=== PATIENT | female | born 1960 | race Caucasian/White ===

== ENCOUNTER 2018-09-23 12:38 | Emergency (ER) | payer MEDICARE, MEDICAID ==
--- OUTSIDE RECORDS SUMMARY | 2018-09-23 12:44 | XMS REPORT | Continuity of Care Document ---
:1960 External Reference #:[id number] Author Name Santosh Rueda M.D. Address [address] [place] [address] Care Team Providers Name Role Phone Maryanne Bartholomew M.D. 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 Active cataract Onset: 03/14/2015 Aphakia Santosh Rueda M.D. Active Onset: 03/14/2015 Esotropia Santosh Rueda M.D. Active Onset: 03/14/2015 Congenital nystagmus Santosh Rueda M.D. Active Onset: 03/29/2017 Monocular esotropia Santosh Rueda M.D. Active Onset: 04/14/2018 Blepharitis Santosh Rueda M.D. Active Onset: Periodontal disease Active Onset: Vitamin D deficiency Active Onset: 09/22/2018 Nuclear senile cataract Santosh Rueda M.D. Active Family History Date Family Member(s) Problem(s) Comments Father No Current Problems Mother No Current Problems Social History Type Date Description Comments Sex Unknown Marital Status Legal Status: Never Work Status Unemployed ETOH Use Never used alcohol Tobacco Use Start: Unknown Patient has never smoked Recreational Drug Use Never Used Drugs Smoking Status Reviewed: 09/22/18 Patient has never smoked Allergies, Adverse Reactions, Alerts Date Description Reaction Status Severity Comments 09/22/2018 Naproxen Sodium Active 09/22/2018 Sulindac Active 03/14/2015 NKDA Inactive Medications Medication Date Status Form Strength Qnty SIG Indications Ordering Provider Vigamox 09/22/ Active Solution 0.5% 3ml one drop Santosh Gibson 2019 right eye [place], three M.D. times a day, start the day before surgery Ketorolac 09/22/ Active Solution 0.5% 10ml use one Santosh Gibson Tromethamine 2019 drop in [place], the right M.D. eye three times a day, start the day before surgery Prednisolone 09/22/ Active Suspension 1% 10ml 1 drops Santosh Gibson Acetate 2019 right eye [place], three M.D. times a day. taper as directed Raloxifene HCL / Active Tablets 60mg Unknown 0000 Amoxicillin / Active Capsules 500mg Prior To Unknown 0000 Dental Work Vitamin D / Active Chewtabs 400Unit every day Unknown (Cholecalcifero 0000 l) Ibuprofen / Active Tablets 200mg as needed Unknown 0000 Synthroid / Active Tablets 50mcg Unknown 0000 Acetaminophen / Active Tablets 325mg Unknown 0000 Guaifenesin / Active Liquid 100mg/5ML as needed Unknown 0000 Aspirin Low 00/ Active Chewtabs 81mg Unknown Strength 0000 Baby Shampoo / Active Shampoo on lids Unknown 0000 Triple / Active Ointment 3.5-400-50 Unknown Antibiotic 0000 00 Aspirin Enteric / Active Tablets DR 81mg Unknown Coated Adult 0000 Low Strength Reclast / Active Solution 5mg/100ML for Unknown 0000 infusion as directed every yr Prevident 5000 0000/ Active Gel 1.1% Unknown Dry Mouth 0000 Listerine / Active Liquid Unknown Antiseptic 0000 Calcium / Active Tablets 600-400mg- Unknown Carb-Cholecalci 0000 Unit ferol Daily Vitamin / Active Tablets Unknown 0000 Gas Relief / Active Capsules 125mg Unknown 0000 Levothyroxine / Hx Tablets 50mcg Unknown Sodium 0000 - 2016 Chlorhexidine / Hx Solution 0.12% Unknown Gluconate Oral 0000 - Rinse 2016 Evista / Hx Tablets 60mg tab by Unknown 0000 - mouth 03/13/ every day 2015 Immunizations Description No Information Available Vital Signs Description No Information Available Results Description No Information Available Procedures Date Code Description Status 04/14/2018 29272 Est Patient Comprehensive Exam Completed 03/29/2017 47638 Determination Of Refractive State Completed 03/29/2017 60375 Est Patient Comprehensive Exam Completed 03/29/2016 85550 Determination Of Refractive State Completed 03/29/2016 68749 Est Patient Comprehensive Exam Completed 03/14/2015 26962 Determination Of Refractive State Completed 03/14/2015 95021 Est Patient Comprehensive Exam Completed 01/25/2014 94960 Est Patient Comprehensive Exam Completed 01/22/2013 87601 Est Patient Comprehensive Exam Completed 01/21/2012 42683 Est Patient Comprehensive Exam Completed 01/16/2011 67524 Est Patient Intermediate Exam Completed 07/17/2010 20924 New Patient Comprehensive Exam Completed Encounters Description No Information Available Plan of Treatment Future Appointment(s):10/13/2018 11:00 am - Marivel Rojas O.D. at Santosh Rueda MD, 09/25/2018 10:45 am - Santosh Rueda M.D. at Santosh Rueda MD , 09/24/2018 7:00 am - Santosh Rueda M.D. at Santosh Rueda MD, 2018 10:00 am - Santosh Rueda M.D. at Santosh Rueda MD, 09/22/2018 - Santosh Rueda M.D.H25.041 Posterior subcapsular polar age-related cataract, right eyeComments:Smoking can increase the risk of developing or worsening any eye related disease, as well as affect your overall health. If you are a smoker , we strongly recommend that you quit.If you are not a smoker, we strongly recommend that you do not start. Dense cataract in the right eye.Follow up:For surgery. Please keep post op appointments as scheduled.DFE/IOPH27.02 Aphakia, left eyeH55.01 Congenital opbmsifyrP69.012 Monocular esotropia, left eyeH25.12 Age-related nuclear cataract, left eye
[2018-09-23 13:13] VITALS: BP 104/57
--- NOTE | 2018-09-23 13:30 | UC ---
Knee Pain HPI - HPI Summary HPI Summary: 57 yo female c/o bruising and swelling to L knee. Event itself not witnessed, staff discovered discoloration of knee during shower 09/21/18, fall onto L knee on Saturday09/19/18. Pt reports that she tripped "two times," but further details unclear. Able to bear weight but limps. Pain is nonfocal, "it hurts". Denies pain or injury elsewhere. Specifically denies pain to R knee, pelvis / hips, neck / back / feet. 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 congenital neurocogn d/o - Surgical History Surgical History: Yes Surgery Procedure, Year, and Place: L shoulder rotator cuff; L hip repair - Family History Known Family History: Positive: Hypertension - Social History Alcohol Use: None Substance Use Type: None Smoking Status (MU): Never Smoked Tobacco - Immunization History Most Recent Influenza Vaccination: 2015 Most Recent Tetanus Shot: 2006 Most Recent Pneumonia Vaccination: 10/07/96 Review of Systems All Other Systems Reviewed And Are Negative: Yes Constitutional: Positive: Negative Skin: Positive: Bruising Eyes: Positive: Negative, Other - scheduled for cataract sx tomorrow ENT: Positive: Negative Respiratory: Positive: Negative Cardiovascular: Positive: Negative Gastrointestinal: Positive: Negative Genitourinary: Positive: Negative Motor: Positive: Other - see hpi Neurovascular: Positive: Other - see hpi Musculoskeletal: Positive: Edema - see hpi Neurological: Positive: Negative Psychological: Positive: Negative Is Patient Immunocompromised?: No Physical Exam Triage Information Reviewed: Yes Appearance: Well-Appearing - sitting up, able to - with assistance - ambulate to exam table, Well-Nourished Vital Signs: Initial Vital Signs Temp 98.7 F 09/23/18 13:04 Pulse 51 09/23/18 13:04 Resp 18 09/23/18 13:04 BP 104/57 09/23/18 13:04 Pulse Ox 98 09/23/18 13:04 Vital Signs Reviewed: Yes Eye Exam: Normal - grossly normal, there appears to be amblyopia ENT Exam: Normal - mmm. no facial eccymosis. tongue unremarkable. Neck: Positive: Nontender Respiratory Exam: Normal Respiratory: Positive: Chest non-tender, Lungs clear, Normal breath sounds, No respiratory distress, No accessory muscle use Cardiovascular Exam: Other - HR regular, correlates with L radial pulse. + systolic murmur Abdominal Exam: Normal Abdomen Description: Positive: Nontender Musculoskeletal Exam: Other - Left knee + swelling and eccymosis. + tender medial knee and ant knee. Post knee + fluid, no cord. Denies tenderness. Foot warm to touch, ankle / foot nontender. DP faint, palb. PT not palb. Distal cap refill is good. Neurological Exam: Normal - grossly nonfocal. Hx Down's S. Psychological Exam: Normal - baseline per aide present. smiles, pleasant. Skin Exam: Other - + large eccymosis purple, blue, yellow over knee L and extending downward medially BLE + venous insuff changes and evidence of chronic lymphedema. Feet warm to touch. Knee Pain Course/Dx - Course Course Of Treatment: Xray L knee ordered. Received call from thermal technician - pt has femoral hardware - as such, femur L xray ordered. Reviewed xrays and reports. + tibial plateau fx. 14:35 spoke with MANJIT Luong (for Dr. Todd, orthopedic air conditioning equipment mechanic). They will see pt immediately upon d/c here (in orthopedic office). D/w pt's aide and pt. Knee immobilizer ordered, but Ms. Guillermo resolutely refused it. It was given to her aide, in case she changes her mind. Transported via wheelchair to the car, then will use wheelchair thereafter, if indicated, per orthopedic office. 14:52 - called [facility] to advise PCP Dr. Bartholomew of condition. Message left with membership secretary. - Differential Dx/Diagnosis Provider Diagnosis: Tibial plateau fracture, left Discharge - Sign-Out/Discharge Documenting (check all that apply): Patient Departure All imaging exams completed and their final reports reviewed: Yes - Discharge Plan Condition: Stable Disposition: HOME Patient Education Materials: Leg Fracture (ED) Referrals: Maryanne Bartholomew MD [Primary Care Provider] - Additional Instructions: TIBIA PLATEAU FRACTURE (broken leg bone just under the knee). Avoid weight bearing unless ok by orthopedic surgeon. Please follow up with Dr. Bartholomew, in the next week (unless sooner recommended by orthopedic doctor). Go directly to the orthopedic office upon leaving here. Wheelchair assistance. - Billing Disposition and Condition Condition: STABLE Disposition: Home
== END 2018-09-23 15:00 | disposition home or self-care (01) ==
LOC: UCEAST 12:38
DX: S82.145A Nondisplaced bicondylar fracture of left tibia, initial encounter for closed fracture (principal); W01.0XXA Fall on same level from slipping, tripping and stumbling without subsequent striking against object, initial encounter; Y92.10 Unspecified residential institution as the place of occurrence of the external cause; M85.862 Other specified disorders of bone density and structure, left lower leg; M17.12 Unilateral primary osteoarthritis, left knee; Z88.6 Allergy status to analgesic agent; Z88.8 Allergy status to other drugs, medicaments and biological substances
CPT/HCPCS: 99212; G0463

== ENCOUNTER 2018-09-28 21:08 | Emergency (ER) | payer MEDICARE, MEDICAID ==
--- OUTSIDE RECORDS SUMMARY | 2018-09-28 21:12 | XMS REPORT | Continuity of Care Document ---
:1960 External Reference #:[id number] Author Name Yaquelin Tiwari Care Team Providers Name Role Phone Maryanne Bartholomew MD Primary Care Physician Unavailable Payers Type Date Identification Numbers Payment Provider Subscriber Policy Number: [id number] Medicare Hilary Edwards PayID: [id number] [address] [place] [address] Policy Number: [id number] Medicaid Hilary Edwards PayID: [id number] [address] [place] [address] Advance Directives Description No Information Available Problems Date Description Provider Status Onset: 09/23/2018 Contusion of knee Yannick Yeh MD Active Onset: 08/14/2016 Closed fracture of tibial plateau Patel Murdock M.D. Active Family History Description No Information Available Social History Type Date Description Comments Sex Unknown Lives With Assisted living Occupation Disabled ETOH Use Never used alcohol Tobacco Use Start: Unknown Patient has never smoked Smoking Status Reviewed: 09/23/18 Patient has never smoked Exercise Type/Frequency Does not exercise Allergies, Adverse Reactions, Alerts Description No Known Drug Allergies Medications Medication Date Status Form Strength Qnty SIG Indications Ordering Provider Prevident 5000 00/ Active Gel 1.1% use as Unknown Dry Mouth 0000 directed(pt is not using) Evista 00/ Active Tablets 60mg 1 by mouth Unknown 0000 every day Multi Complete 0000/ Active Capsules daily Unknown 0000 Synthroid 00/00/ Active Tablets 50mcg 1 by mouth Unknown 0000 every day Ibuprofen 00/00/ Active Tablets 400mg by mouth Unknown 0000 every 4 to 6 hours as needed Guaifenesin ac / Active Syrup 100-10mg/ 1 teaspoon Unknown 0000 5ML by mouth every 4-6 hours as needed cough Vitamin D-400 00// Active Tablets 400Unit 1 by mouth Unknown 0000 every day Chlorhexidine / Active Solution 0.12% rinse/spit Unknown Gluconate Oral 0000 15 Rinse milliliters twice a day Calcium 500 + D / Active Tablets 500-125mg twice a day Unknown 0000 -Unit Aspir-81 / Active Tablets DR 81mg 1 by mouth Unknown 0000 every day Tylenol Extra / Active Tablets 500mg 2 by mouth Unknown Strength 0000 as needed Cough & Cold / Active Tablets 4-30mg Unknown 0000 Advil 03/21/ Hx Capsules 400mg 100ca 1 tid prn Mg 2010 - ps pain Andrez, 07/10/ M.DCarlos 2015 Amoxicillin 01/25/ Hx Tablets 500mg 4tabs take 4 tabs k 2010 - 1 hr prior Andrez, 07/10/ to dental M.DCarlos 2016 work Oxycodone HCL / Hx Tablets 5mg 1-2 tabs by Unknown 0000 - mouth every 05/05/ 4-6 hours as 2017 needed Immunizations Description No Information Available Vital Signs Date Vital Result Comment 09/23/2018 3:43pm Height 62 inches 5'2" Weight 127.00 lb Heart Rate 72 /min Respiratory Rate 16 /min Body Temperature 96.7 F BMI (Body Mass Index) 23.2 kg/m2 05/06/2017 11:03am Height 62 inches 5'2" Weight 145.00 lb BP Systolic 120 mmHg BP Diastolic 70 mmHg Respiratory Rate 18 /min Body Temperature 97.9 F Pain Level 3 BMI (Body Mass Index) 26.5 kg/m2 01/31/2017 9:49am Height 62 inches 5'2" Weight 145.00 lb Heart Rate 58 /min BP Systolic 122 mmHg BP Diastolic 74 mmHg Respiratory Rate 13 /min Body Temperature 96.2 F Pain Level 2 BMI (Body Mass Index) 26.5 kg/m2 12/13/2016 12:05pm Height 62 inches 5'2" Weight 145.00 lb Heart Rate 64 /min BP Systolic 123 mmHg BP Diastolic 74 mmHg Body Temperature 96.8 F BMI (Body Mass Index) 26.5 kg/m2 11/06/2016 10:50am Height 62 inches 5'2" Weight 145.00 lb Heart Rate 72 /min BP Systolic Recheck 122 mmHg BP Diastolic Recheck 76 mmHg Respiratory Rate 16 /min Body Temperature 98.1 F BMI (Body Mass Index) 26.5 kg/m2 10/09/2016 11:26am Height 62 inches 5'2" Weight 147.00 lb Heart Rate 72 /min BP Systolic Recheck 126 mmHg BP Diastolic Recheck 80 mmHg Respiratory Rate 16 /min Body Temperature 97.3 F BMI (Body Mass Index) 26.9 kg/m2 09/11/2016 1:11pm Height 62 inches 5'2" Weight 147.00 lb Heart Rate 76 /min BP Systolic Recheck 124 mmHg BP Diastolic Recheck 82 mmHg Respiratory Rate 16 /min Body Temperature 98.2 F BMI (Body Mass Index) 26.9 kg/m2 08/14/2016 1:27pm Height 52 inches 4'4" Weight 150.00 lb Heart Rate 76 /min BP Systolic Recheck 126 mmHg BP Diastolic Recheck 78 mmHg Respiratory Rate 16 /min Body Temperature 980.0 F BMI (Body Mass Index) 39.0 kg/m2 Results Description No Information Available Procedures Date Code Description Status 07/07/2016 83704 FX Tibial Closed Trtment Proxi Completed 03/21/2011 17823 Rad Exam; Hip Unilat Completed 03/21/2011 04174 Rad Exam; Pelvis Completed 01/15/2011 43272 Rad Exam; Hip Unilat Completed 01/15/2011 63712 Rad Exam; Pelvis Completed 12/04/2010 84061 Open TX Of Femoral FX,Promimal End,Neck Internal Fixation Completed 12/04/2010 86105 Open TX Of Femoral FX,Promimal End,Neck Internal Fixation Completed Encounters Type Date Location Provider Dx Diagnosis Office Visit 05/06/2017 [facility] Richard Barahona S82.142D Displ bicondylar 10:45a [facility] Max MD fx l tibia, subs for clos fx w [facility] Office Visit 01/31/2017 Orthopedic Richard Barahona S82.142D Displ bicondylar 9:15a [facility] Max MD fx l tibia, subs for clos fx w [facility] Office Visit 12/13/2016 Orthopedic Richard Barahona S82.142D Displ bicondylar 11:15a [facility] Max MD fx l tibia, subs for clos fx w [facility] Office Visit 11/06/2016 Orthopedic Patel Murdock, S82.142D Displ bicondylar 10:30a [facility] Krysten SOLARES M.D. fx l tibia, subs [place] for clos fx w routn heal M19.021 Primary osteoarthritis, right elbow Office Visit 10/09/2016 11:15a Orthopedic Patel S82.142D Displ bicondylar [facility] Krysten Murdock M.D. 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 bicondylar Hospitalists fracture of left tibia, init E78.00 Pure hypercholesterolemia, unspecified E03.9 Hypothyroidism, unspecified Q90.9 Down syndrome, unspecified Office Visit 07/09/2016 [facility] S82.142A Displaced 1:20p Assoc,henrique Marsh D.O. bicondylar Hospitalists fracture of left tibia, init E78.00 Pure hypercholesterolemia, unspecified E03.9 Hypothyroidism, unspecified Q90.9 Down syndrome, unspecified Office Visit 07/08/2016 [facility] S82.142A Displaced 1:20p Assoc,henrique Marsh D.O. bicondylar Hospitalists fracture of left tibia, init E78.00 Pure hypercholesterolemia, unspecified E03.9 Hypothyroidism, unspecified Q90.9 Down syndrome, unspecified Office Visit 07/07/2016 [facility] Jose Angel Tran S82.142A Displaced 1:19p Assoc,henrique MAYES M.D. bicondylar Hospitalists fracture of left tibia, init Q90.9 Down syndrome, unspecified E78.00 Pure hypercholesterolemia, unspecified E03.9 Hypothyroidism, unspecified Office Visit 05/23/2011 10:30a Orthopedic China Medel, 820.8 FX Unspec [facility] RPA-C Part Of Neck Of Femur Closed Office Visit 03/21/2011 1:45p Orthopedic Mg Maguire M.D. 820.8 FX Unspec [facility] Part Of Neck Of Femur Closed Plan of Treatment Future Appointment(s):10/07/2018 9:45 am - Richard Max MD at [facility]/23/2018 - Yannick Yeh, MDS80.02xA Contusion of left knee, initial encounterFollow up:Follow Up: as scheduled with elmira in 2 weeks
--- OUTSIDE RECORDS SUMMARY | 2018-09-28 21:12 | XMS REPORT | Continuity of Care Document ---
:1960 External Reference #:[id number] Author Name Santosh Rueda M.D. Address [address] [place] [address] Care Team Providers Name Role Phone Maryanne Bartholomew M.D. Primary Care Physician Unavailable Payers Type Date Identification Numbers Payment Provider Subscriber Policy Number: [id number] Medicare - [facility] Hilary Guillermo PayID: [id number] [address] [place] [address] Policy Number: [id number] Medicaid Hilary Guillermo PayID: [id number] [address] [place] [address] Advance Directives Description No Information Available Problems [...] Use Never Used Drugs Smoking Status Reviewed: 09/23/18 Patient has never smoked Allergies, Adverse Reactions, [...] Information Available Procedures Date Code Description Status 09/22/2018 05378 Ophthalmic Biometry Completed 09/22/2018 62587 Est Patient Intermediate Exam Completed 04/14/2018 66346 Est Patient Comprehensive Exam Completed 03/29/2017 91101 Determination Of Refractive State Completed 03/29/2017 58632 Est Patient Comprehensive Exam Completed 03/29/2016 87092 Determination Of Refractive State Completed 03/29/2016 47410 Est Patient Comprehensive Exam Completed 03/14/2015 07394 Determination Of Refractive State Completed 03/14/2015 84390 Est Patient Comprehensive Exam Completed 01/25/2014 80673 Est Patient Comprehensive Exam Completed 01/22/2013 57957 Est Patient Comprehensive Exam Completed 01/21/2012 24988 Est Patient Comprehensive Exam Completed 01/16/2011 07965 Est Patient Intermediate Exam Completed 07/17/2010 34037 New Patient Comprehensive Exam Completed Encounters Description No Information Available Plan of Treatment Future Appointment(s):10/13/2018 11:00 am - Marivel Rojas O.D. at Santosh Rueda MD, pc09/25/2018 10:45 am - Santosh Rueda M.D. at Sanotsh Rueda MD , pc09/24/2018 7:00 am - Santosh Rueda M.D. at Santosh Rueda MD, 2018 10:00 am - Santosh Rueda M.D. at Santosh Rueda MD, 09/23/2018 - Santosh Rueda M.D.H25.041 Posterior subcapsular polar [...] appointments as scheduled.DFE/IOPH27.02 Aphakia, left eyeH55.01 Congenital wvnbimgfrV79.012 Monocular esotropia, left eye
--- OUTSIDE RECORDS SUMMARY | 2018-09-28 21:12 | XMS REPORT | Continuity of Care Document ---
:1960 External Reference #:[id number] Author Name Deann Tello Care Team Providers Name Role Phone Maryanne Bartholomew M.D. Primary Care Physician Unavailable Payers Type Date Identification Numbers Payment Provider Subscriber Policy Number: [id number] Medicare - [facility] Hilary Guillermo PayID: [id number] [facility] [place] [address] Policy Number: [id number] Medicaid Hilary Guillermo PayID: [id number] [address] [place] [address] Advance Directives Description No Information Available Problems [...] 100mg/5ML as needed Unknown 0000 Aspirin Low / Active Chewtabs 81mg Unknown Strength 0000 Baby Shampoo / Active Shampoo on lids Unknown 0000 Triple / Active Ointment 3.5-400-50 Unknown Antibiotic 0000 00 Aspirin Enteric / Active Tablets DR 81mg Unknown Coated Adult 0000 Low Strength Reclast / Active Solution 5mg/100ML for Unknown 0000 infusion as directed every yr Prevident 5000 / Active Gel 1.1% Unknown Dry Mouth 0000 [...] Available Procedures Date Code Description Status 09/22/2018 41289 Ophthalmic Biometry Completed 09/22/2018 25236 Est Patient Intermediate Exam Completed 04/14/2018 61193 Est Patient Comprehensive Exam Completed 03/29/2017 24641 Determination Of Refractive State Completed 03/29/2017 62802 Est Patient Comprehensive Exam Completed 03/29/2016 89453 Determination Of Refractive State Completed 03/29/2016 80157 Est Patient Comprehensive Exam Completed 03/14/2015 73360 Determination Of Refractive State Completed 03/14/2015 27079 Est Patient Comprehensive Exam Completed 01/25/2014 24435 Est Patient Comprehensive Exam Completed 01/22/2013 59846 Est Patient Comprehensive Exam Completed 01/21/2012 65289 Est Patient Comprehensive Exam Completed 01/16/2011 74492 Est Patient Intermediate Exam Completed 07/17/2010 42944 New Patient Comprehensive Exam Completed Encounters Description [...] appointments as scheduled.DFE/IOPH27.02 Aphakia, left eyeH55.01 Congenital bsmpfgxarO40.012 Monocular esotropia, left eye
--- NOTE | 2018-09-28 21:13 | UC ---
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 She was recently seen here on 09/23/18 for the same knee after she fell on . X-rays showed tibial plateau fracture which appeared to be chronic. She was offered a knee mobilizer which she declined but was given to the aide. Orthopedics office was also contacted at that time and plan was to see her immediately in orthopedics office. She had not seen orthopedics and injured her left knee again today. It's swollen and bruised. She is able to bear weight but is limping because of the pain. She is due to get her cataract surgery this week which will improve her vision and reduce her falls. - History of Current Complaint Stated Complaint: L KNEE INJURY Time Seen by Provider: 09/28/18 21:11 Hx Obtained From: Patient, Family/Gameplay Programmer - aide. Hx Last Menstrual Period: menapause - Allergies/Home Medications Allergies/Adverse Reactions: Allergies Allergy/AdvReac Type Severity Reaction Status Date / Time naproxen Allergy Unknown Verified 09/28/18 21:22 Reaction Details sulindac Allergy Unknown Verified 09/28/18 21:22 Reaction Details PMH/Surg Hx/FS Hx/Imm Hx - Additional Past Medical History Additional PMH: Chronic tibial plateau fracture Hypertension Hyperlipidemia Hypothyroidism Down syndrome Osteoporosis Cataract Previously Healthy: Yes - Surgical History Surgical History: Yes Surgery Procedure, Year, and Place: L shoulder rotator cuff; L hip repair - Family History Known Family History: Positive: Hypertension - Social History Alcohol Use: None Substance Use Type: None Smoking Status (MU): Never Smoked Tobacco - Immunization History Most Recent Influenza Vaccination: 2015 Most Recent Tetanus Shot: 2006 Most Recent Pneumonia Vaccination: 10/07/96 Review of Systems All Other Systems Reviewed And Are Negative: Yes Constitutional: Positive: Negative Skin: Positive: Negative Eyes: Positive: Negative ENT: Positive: Negative Respiratory: Positive: Negative Cardiovascular: Positive: Negative Gastrointestinal: Positive: Negative Genitourinary: Positive: Negative Motor: Positive: Negative Musculoskeletal: Positive: Arthralgia - Left knee pain, Decreased ROM - Left knee, Edema - Left knee, Other: - Limping Neurological: Positive: Negative Psychological: Positive: Negative Is Patient Immunocompromised?: No Physical Exam - Summary Physical Exam Summary: Physical Exam: Const: Appears well. No signs of apparent distress present. Alert and oriented x 3. Musculo: Walks with an antalgic gait, able to bear weight but painful. Using cane to ambulate Head/Face: Atraumatic, normocephalic on inspection. Eyes: EOMI and PERRLA in both eyes. Conjunctivae clear. ENT: Hearing normal, Respiratory: Respirations are unlabored. Lungs clear to auscultation bilaterally CVS: Regular rate and Rhythm, S1S2 normal , no murmurs identified. Extremities: Peripheral circulation is grossly normal. Pulses 2+ Abdomen : Soft non tender Skin: No lesions or rash located on the upper extremities or on the lower extremities. Neuro: Cranial nerves II to XII intact, motor and sensory intact. DTR Intact bilaterally. Mood is normal. Affect is normal. Left Knee: Insp/Palp: Significant swelling and bruising noted . Generalized tenderness to palpation Strength: Quadriceps 5/5 , No hamstring tightness. ROM: Limited and painful range of motion, flexion to 100, 10 short of full extension Special Tests: Limited testing due to pain and range of motion Triage Information Reviewed: Yes Vital Signs Reviewed: Yes Diagnostics - Radiology No standard instances Radiology Interpretation Completed By: ED Physician - Left knee x-ray: No new acute injury when compared to left knee x-ray from 09/23/18. Chronic appearing tibial plateau fracture is again noted, osteoarthritis. Status post ORIF of distal femur fracture unchanged from before. No acute osseous injury Knee Pain Course/Dx - Course Course Of Treatment: During the visit today, we obtained left knee x-rays, final read by radiologist pending until tomorrow morning. My wet read:Left knee x-ray: No new acute injury when compared to left knee x-ray from 09/23/18. Chronic appearing tibial plateau fracture is again noted, osteoarthritis. Status post ORIF of distal femur fracture unchanged from before. No acute osseous injury. I discussed these findings with her and her caregiver. It appears that there is no new acute injury. Advised her to follow-up with orthopedics and start using her immobilizer for comfort that was given to her on the last visit here. She is able to walk comfortably with the use of cane. Patient expressed understanding . - Differential Dx/Diagnosis Provider Diagnosis: Left knee pain, Contusion of left knee Discharge - Sign-Out/Discharge Documenting (check all that apply): Patient Departure All imaging exams completed and their final reports reviewed: No - Discharge Plan Condition: Stable Disposition: HOME Patient Education Materials: Contusion in Adults (ED), Knee Pain (ED) Referrals: Maryanne Bartholomew MD [Primary Care Provider] - 1 Week Yannick Yeh MD [Medical Doctor] - 2 Days Additional Instructions: Please start using the knee brace/immobilizer that was given on the last visit. Please follow up with orthopedics within 1-2 days for evaluation. Ibuprofen as needed for pain control. Ice 15 minutes at a time 3-4 times a day. Return to Urgent care / ER if symptoms get worse. - Billing Disposition and Condition Condition: STABLE Disposition: Home
[2018-09-28 21:21] VITALS: BP 113/74
--- NOTE | 2018-09-29 16:02 | UC ---
- Progress Note Progress Note: Patient Name: YARELI CASTLE Medical Record#: [id number] Ordering Physician: Tara Pereira MD Acct.#: [id number] : 1960 Age: 57 Sex: F Location: [facility] Exam Date: 09/28/182127 ADM Status: DEP ER Order Information: KNEE LEFT 4+ VWS Accession Number: [id number] CPT: 85944 HISTORY: patient fell on her left knee COMPARISONS: September 23, 2018 VIEWS: 4 , Frontal, lateral, axial, and oblique views of the left knee FINDINGS: BONE DENSITY: There is diffuse osteopenia. BONES: The patient is status post internal fixation of the distal femur. There is chronic post right changes to the distal femur and proximal tibia. Again noted is a nondisplaced fracture of the lateral plateau. This is stable. JOINTS: There is advanced osteoarthritis of the left knee. ALIGNMENT: There is no dislocation. SOFT TISSUES: Unremarkable. OTHER FINDINGS: None. IMPRESSION: 1. STABLE LATERAL TIBIAL PLATEAU FRACTURE. 2. OSTEOPENIA. 3. OSTEOARTHRITIS. 4. STATUS POST INTERNAL FIXATION OF THE DISTAL FEMUR. R0 Preliminary Imaging Read R0 <Electronically signed by Jeff Sharpe MD in OV> 09/29/18744 Dictated By: Jeff Sharpe MD Dictated Date/Time: 09/29/1845 Transcribed Date/Time: 09/29/1843 Copy to: CC:Tara Pereira MD; Maryanne Bartholomew MD Imaging - [facility] Imaging - [facility] Imaging - [facility] This report is only to be considered final once signed by the Provider(s) as displayed in the "<Electronically Signed by >" field (s). Absence of a signature indicates the report is in a draft status and still needs to be finalized. In the event this document was created by someone other than the signing Provider, the individual initiating the document will be listed in the "Entered by:" or "Dictated by:" lazaro. 1 of 2 Course/Dx - Diagnoses Provider Diagnoses: Left knee pain, Contusion of left knee Discharge - Sign-Out/Discharge Documenting (check all that apply): Post-Discharge Follow Up All imaging exams completed and their final reports reviewed: Yes - Discharge Plan Condition: Stable Disposition: HOME Patient Education Materials: Contusion in Adults (ED), Knee Pain (ED) Referrals: Yannick Yeh MD [Medical Doctor] - 2 Days Maryanne Bartholomew MD [Primary Care Provider] - 1 Week Additional Instructions: Please start using the knee brace/immobilizer that was given on the last visit. Please follow up with orthopedics within 1-2 days for evaluation. Ibuprofen as needed for pain control. Ice 15 minutes at a time 3-4 times a day. Return to Urgent care / ER if symptoms get worse. - Billing Disposition and Condition Condition: STABLE Disposition: Home
== END 2018-09-28 22:10 | disposition home or self-care (01) ==
LOC: UCEAST 21:08
DX: S80.02XA Contusion of left knee, initial encounter (principal); S82.145A Nondisplaced bicondylar fracture of left tibia, initial encounter for closed fracture; W19.XXXA Unspecified fall, initial encounter; Y92.199 Unspecified place in other specified residential institution as the place of occurrence of the external cause; Z88.8 Allergy status to other drugs, medicaments and biological substances
CPT/HCPCS: 99212; G0463

== ENCOUNTER 2018-10-01 09:02 | Day surgery (SDC) | payer MEDICARE, MEDICAID ==
[~2018-10-01 09:02] MED LIST: Acetaminophen TAB* 325 MG PO PRN; Buffered Lidocaine 1% SYRIN* 1 ML/SYRINGE INTRADERM ONE
[2018-10-01] MEDS ORDERED: Midazolam* 1 MG/ML 2 ML VIAL (2 MG) ONE ×2 (11:08→11:51)
[2018-10-01] MEDS ORDERED: Trypan Blue 0.06% SOL* 0.5 ML BTL ONE (11:28)
[2018-10-01] MEDS ORDERED: fentaNYL* 50 MCG/ML 2 ML VIAL (100 MCG VIAL) ONE (11:33)
[2018-10-01] MEDS ORDERED: Propofol* 10 MG/ML 20 ML BTL ONE (11:50)
[2018-10-01 12:26] VITALS: BP 115/59
--- NOTE | 2018-10-01 12:53 | OP ---
DATE OF OPERATION: 10/01/18 - SDS DATE OF : 56 SURGEON: Santosh Rueda M.D. PREOPERATIVE DIAGNOSIS: Cataract, right eye. POSTOPERATIVE DIAGNOSIS: Cataract, right eye. OPERATIVE PROCEDURE: Extracapsular cataract extraction with intraocular lens implant, right eye. DESCRIPTION OF PROCEDURE: The patient was brought to the operating room after being given 1/2% Alcaine with epinephrine drops in the preoperative area. The eye was prepped and draped in the usual sterile fashion. Sterile drape and eyelid speculum were placed. Again, topical 1/2% Alcaine with epinephrine was given. A paracentesis incision was made at the 9 o'clock position with the No.75 blade. Clear cornea incision 2.2 x 2.2-mm was created at the 12 o'clock position starting at the anterior limbus using the 2.2-mm keratome. The anterior chamber was irrigated with 0.4 mL of 1% non-preservative intracameral lidocaine and filled with DisCoVisc. A capsulorrhexis was completed using the cystotome and the Utrata forceps. Hydrodissection was performed with balanced salt solution. The lens nucleus was removed with the Phacoemulsification handpiece without incident. Cortex was removed with the irrigation-aspiration handpiece. The capsular bag was re-inflated using DisCoVisc and an SN60WF 13.5 implant was inserted with the shooter. Because the patient has Down syndrome, I was afraid she may rub her eye, I placed one 10-0 nylon X suture through the incision. There is also a decent amount of calcium at her whole limbus, so I thought this would be helpful. The irrigation-aspiration handpiece was used to remove all residual DisCoVisc. The eye was refilled with balanced salt solution and the wound checked and found to be watertight. Topical Maxitrol drops were given. [id number]/[facility] #: [id number] [facility]
== END 2018-10-01 12:23 | disposition home or self-care (01) ==
LOC: OREAST 09:02
PROVIDERS: ATTEND Specialist
DX: H25.041 Posterior subcapsular polar age-related cataract, right eye (principal); H27.02 Aphakia, left eye; H55.01 Congenital nystagmus; H50.012 Monocular esotropia, left eye; Q90.9 Down syndrome, unspecified; F70 Mild intellectual disabilities; E78.5 Hyperlipidemia, unspecified; E55.9 Vitamin D deficiency, unspecified; E03.9 Hypothyroidism, unspecified
CPT/HCPCS: J2250; J2704; J3010; V2632

== ENCOUNTER 2018-10-07 09:36 | Emergency (ER) | payer MEDICARE, MEDICAID ==
[2018-10-07 09:57] VITALS: BP 81/41
== END 2018-10-07 11:55 | disposition left against medical advice (07) ==
LOC: UCEAST 09:36
DX: Z53.21 Procedure and treatment not carried out due to patient leaving prior to being seen by health care provider (principal)

== ENCOUNTER 2021-07-19 21:33 | Inpatient (IN) ==
[2021-07-20] MEDS ORDERED: Droperidol 5 MG/2 ML 2 ML VIAL IM ONE (00:40)
[2021-07-20 02:06] LABS: ABS Basophils 0.1 10^3/ul (0-0.2); ABS Eosinophils 0.3 10^3/ul (0-0.6); ABS Lymphocytes 0.5 10^3/ul (1.0-4.8); ABS Monocytes 0.3 10^3/ul (0-0.8); ABS Neutrophils 4.9 10^3/ul (1.5-7.7); Eosinophil % 4.4 %; Hematocrit 38 % (35-47); Lymphocyte % 9.1 %; Mean Corpuscular HGB Conc 34 g/dL (31-36); Mean Corpuscular Hemoglobin 33 pg (27-31); Mean Corpuscular Volume 98 fL (80-97); Mean Platelet Volume 9.3 fL (7.4-10.4); Nucleated Red Blood Cells % 0.2; Platelet Count 187 10^3/uL (150-450); Red Blood Count 3.92 10^6 /uL (3.70-4.87); Red Cell Distribution Width 14 % (10-15)
[2021-07-20 02:20] LABS: Rapid COVID-19 Molecular Undetected (Undetected)
[2021-07-20 02:28] LABS: Albumin 3.6 g/dL (3.2-5.2); Albumin/Globulin Ratio 0.8 (1-3); C Reactive Protein 11.3 mg/L (<8.01); Calcium 9.1 mg/dL (8.6-10.3); Globulin 4.3 g/dL (2-4); Potassium 4.2 mmol/L (3.5-5.0); Total Bilirubin 0.4 mg/dL (0.2-1.0); Total Protein 7.9 g/dL (6.4-8.9)
[2021-07-20] MEDS ORDERED: Iohexol 300 (CONTRAST) 10 ML SDV IV ONE (02:40)
[2021-07-20] MEDS ORDERED: Ondansetron 4 mg VIAL 2 MG/ML 2 ml VIAL IV PRN (05:55)
[2021-07-20 05:56] LABS: Urine Appearance Clear; Urine Bilirubin Negative (Negative); Urine Blood Negative (Negative); Urine Color Yellow; Urine Glucose Negative (Negative); Urine Ketones Negative (Negative); Urine Nitrite Negative (Negative); Urine Protein Negative (Negative); Urine Urobilinogen Negative (Negative)
[2021-07-20] MEDS ORDERED: Polyethylene Glycol 3350 17 GM PACKET PO PRN (06:01)
[2021-07-20] MEDS: Enoxaparin 40 MG/0.4 ML SYR SUBCUT SCH (07:26)
[2021-07-20 08:19] LABS: HDL Cholesterol 50.2 mg/dL
[2021-07-20] MEDS: Magnesium Hydroxide LIQ 30 ML UDC PO SCH ×3 (11:12→21:33)
[2021-07-20] MEDS: Senna TAB 8.6 mg TAB PO SCH ×3 (11:12→21:29)
[2021-07-20] MEDS: CMCS:Raloxifene 60 mg TAB (NF) PO SCH (11:12)
[2021-07-20] MEDS: NS 0.9% 1000 ml BAG 1,000 ML IV SCH ×2 (11:16→23:00)
[2021-07-20] MEDS: PEG 3000 GI LAVAGE 1 GALLON PO SCH (17:21)
[2021-07-20] MEDS ORDERED: Senna TAB 8.6 mg TAB PO SCH (21:00)
[2021-07-21 04:42] LABS: Hematocrit 32 % (35-47); Hemoglobin 10.8 g/dL (12.0-16.0); Mean Corpuscular HGB Conc 34 g/dL (31-36); Mean Corpuscular Hemoglobin 34 pg (27-31); Mean Corpuscular Volume 99 fL (80-97); Mean Platelet Volume 8.6 fL (7.4-10.4); Platelet Count 172 10^3/uL (150-450); Red Blood Count 3.23 10^6 /uL (3.70-4.87); Red Cell Distribution Width 15 % (10-15); White Blood Count 3.2 10^3/uL (3.5-10.8)
[2021-07-21 04:59] LABS: Calcium 8.1 mg/dL (8.6-10.3); Magnesium 2.1 mg/dL (1.9-2.7); Phosphorus 3.4 mg/dL (2.5-5.0); Potassium 3.7 mmol/L (3.5-5.0)
[2021-07-21] MEDS: Enoxaparin 40 MG/0.4 ML SYR SUBCUT SCH (05:36)
[2021-07-21] MEDS ORDERED: CALCIUM GLUCONATE 1GM/50ML NS 1 GM/50 ML BAG IV ONE (06:39)
[2021-07-21 07:24] LABS: TSH Ultra Thyroid Stim Horm 6.83 mcIU/mL (0.34-5.60)
[2021-07-21 07:27] LABS: Free T4 0.94 ng/dL (0.61-1.12)
[2021-07-21] MEDS: Magnesium Hydroxide LIQ 30 ML UDC PO SCH ×2 (09:30→23:32)
[2021-07-21] MEDS: CMCS:Raloxifene 60 mg TAB (NF) PO SCH (09:30)
[2021-07-21] MEDS: PEG 3000 GI LAVAGE 1 GALLON PO SCH (13:24)
[2021-07-21] MEDS: Senna TAB 8.6 mg TAB PO SCH (23:32)
[2021-07-22 05:04] LABS: Hematocrit 35 % (35-47); Mean Corpuscular HGB Conc 34 g/dL (31-36); Mean Corpuscular Hemoglobin 34 pg (27-31); Mean Corpuscular Volume 99 fL (80-97); Mean Platelet Volume 8.5 fL (7.4-10.4); Platelet Count 192 10^3/uL (150-450); Red Blood Count 3.54 10^6 /uL (3.70-4.87); Red Cell Distribution Width 15 % (10-15); White Blood Count 4.3 10^3/uL (3.5-10.8)
[2021-07-22 05:20] LABS: Blood Urea Nitrogen 11 mg/dL (6-24); CO2 Carbon Dioxide 29 mmol/L (22-32); Calcium 8.3 mg/dL (8.6-10.3); Chloride 106 mmol/L (101-111); Glucose 92 mg/dL (70-100); Magnesium 2.2 mg/dL (1.9-2.7); Sodium 139 mmol/L (135-145)
[2021-07-22 05:30] LABS: Anion Gap 4 mmol/L (2-11)
[2021-07-22] MEDS: Enoxaparin 40 MG/0.4 ML SYR SUBCUT SCH (06:15)
[2021-07-22 09:56] LABS: Phosphorus 3.9 mg/dL (2.5-5.0); Potassium Redraw 4.1 mmol/L (3.5-5.0)
[2021-07-22] MEDS: Senna TAB 8.6 mg TAB PO SCH ×2 (09:57→20:02)
[2021-07-22] MEDS: Polyethylene Glycol 3350 17 GM PACKET PO SCH ×3 (10:07→20:02)
[2021-07-22] MEDS: Magnesium Hydroxide LIQ 30 ML UDC PO SCH ×2 (10:08→20:02)
[2021-07-22] MEDS: CMCS:Raloxifene 60 mg TAB (NF) PO SCH (11:27)
[2021-07-23] MEDS: Enoxaparin 40 MG/0.4 ML SYR SUBCUT SCH (05:31)
[2021-07-23] MEDS: CMCS:Raloxifene 60 mg TAB (NF) PO SCH (09:11)
[2021-07-23] MEDS: Polyethylene Glycol 3350 17 GM PACKET PO SCH ×2 (09:14→21:19)
[2021-07-23] MEDS: Magnesium Hydroxide LIQ 30 ML UDC PO SCH ×2 (11:34→21:18)
[2021-07-23] MEDS ORDERED: Calcium (OSCAL) 500 mg TAB PO ONE (17:26)
[2021-07-23 18:02] LABS: Phosphorus 4.1 mg/dL (2.5-5.0)
[2021-07-23 18:31] LABS: Vitamin D Total 25(OH) 36.8 ng/mL (20-50)
[2021-07-23 18:58] LABS: Calcium (PTH Intact) 8.2 mg/dL (8.6-10.3)
[2021-07-23] MEDS: Senna TAB 8.6 mg TAB PO SCH (21:19)
[2021-07-24 05:15] LABS: Calcium 8.7 mg/dL (8.6-10.3)
[2021-07-24] MEDS: Enoxaparin 40 MG/0.4 ML SYR SUBCUT SCH (05:29)
[2021-07-24] MEDS ORDERED: Calcium Gluconate 2 GM in NS 0.9% 100 ml BAG 100 ML IV ONE (10:00)
[2021-07-24] MEDS: Polyethylene Glycol 3350 17 GM PACKET PO SCH ×2 (10:12→21:30)
[2021-07-24] MEDS: CMCS:Raloxifene 60 mg TAB (NF) PO SCH (10:15)
[2021-07-24] MEDS ORDERED: Benzocaine (DENTAL) 10% TOP.GEL TOPICAL PRN (12:28)
[2021-07-24] MEDS: Dextran 70/Hypromellose Tears Eye Drops 15 ml BTL (for Artificials Tears) BOTH EYES PRN ×2 (13:34→21:31)
[2021-07-24] MEDS: Magnesium Hydroxide LIQ 30 ML UDC PO SCH ×2 (13:44→21:30)
[2021-07-24] MEDS: Senna TAB 8.6 mg TAB PO SCH (21:30)
[2021-07-25] MEDS: Enoxaparin 40 MG/0.4 ML SYR SUBCUT SCH (05:48)
[2021-07-25 08:37] LABS: ABS Basophils 0.1 10^3/ul (0-0.2); ABS Eosinophils 0.1 10^3/ul (0-0.6); ABS Lymphocytes 0.7 10^3/ul (1.0-4.8); ABS Monocytes 0.5 10^3/ul (0-0.8); ABS Neutrophils 3.3 10^3/ul (1.5-7.7); Eosinophil % 2.6 %; Hematocrit 36 % (35-47); Hemoglobin 12.4 g/dL (12.0-16.0); Lymphocyte % 15.1 %; Mean Corpuscular HGB Conc 34 g/dL (31-36); Mean Corpuscular Hemoglobin 34 pg (27-31); Mean Corpuscular Volume 98 fL (80-97); Mean Platelet Volume 8.7 fL (7.4-10.4); Platelet Count 224 10^3/uL (150-450); Red Blood Count 3.67 10^6 /uL (3.70-4.87); Red Cell Distribution Width 14 % (10-15); White Blood Count 4.7 10^3/uL (3.5-10.8)
[2021-07-25 09:19] LABS: Potassium 4.3 mmol/L (3.5-5.0)
[2021-07-25 09:20] LABS: Calcium 8.5 mg/dL (8.6-10.3)
[2021-07-25] MEDS: CMCS:Raloxifene 60 mg TAB (NF) PO SCH (09:51)
[2021-07-25] MEDS: Polyethylene Glycol 3350 17 GM PACKET PO SCH ×2 (10:37→20:18)
[2021-07-25] MEDS: Magnesium Hydroxide LIQ 30 ML UDC PO SCH ×2 (10:38→22:03)
[2021-07-25] MEDS: Erythromycin OPTH OINT APPLIC OINT BOTH EYES SCH ×3 (15:05→22:04)
[2021-07-25] MEDS: Senna TAB 8.6 mg TAB PO SCH (22:03)
[2021-07-26] MEDS: Erythromycin OPTH OINT APPLIC OINT BOTH EYES SCH ×5 (05:47→21:37)
[2021-07-26] MEDS: Enoxaparin 40 MG/0.4 ML SYR SUBCUT SCH (05:48)
[2021-07-26] MEDS: CMCS:Raloxifene 60 mg TAB (NF) PO SCH (09:45)
[2021-07-26] MEDS: Polyethylene Glycol 3350 17 GM PACKET PO SCH ×2 (09:45→21:37)
[2021-07-26] MEDS: Dextran 70/Hypromellose Tears Eye Drops 15 ml BTL (for Artificials Tears) BOTH EYES PRN (09:50)
[2021-07-27] MEDS: Enoxaparin 40 MG/0.4 ML SYR SUBCUT SCH (06:18)
[2021-07-27] MEDS: Erythromycin OPTH OINT APPLIC OINT BOTH EYES SCH ×5 (06:19→21:43)
[2021-07-27] MEDS: CMCS:Raloxifene 60 mg TAB (NF) PO SCH (07:50)
[2021-07-27] MEDS: Polyethylene Glycol 3350 17 GM PACKET PO SCH ×2 (07:50→21:44)
[2021-07-28] MEDS: Enoxaparin 40 MG/0.4 ML SYR SUBCUT SCH (05:32)
[2021-07-28] MEDS: Erythromycin OPTH OINT APPLIC OINT BOTH EYES SCH ×5 (05:32→21:04)
[2021-07-28] MEDS: CMCS:Raloxifene 60 mg TAB (NF) PO SCH (08:45)
[2021-07-28] MEDS: Polyethylene Glycol 3350 17 GM PACKET PO SCH ×2 (08:46→21:07)
[2021-07-28 10:59] LABS: Calcium 8.8 mg/dL (8.6-10.3); Potassium 3.9 mmol/L (3.5-5.0)
[2021-07-29] MEDS: Enoxaparin 40 MG/0.4 ML SYR SUBCUT SCH (05:26)
[2021-07-29] MEDS: Erythromycin OPTH OINT APPLIC OINT BOTH EYES SCH ×5 (05:26→20:44)
[2021-07-29] MEDS: Polyethylene Glycol 3350 17 GM PACKET PO SCH ×2 (08:29→20:44)
[2021-07-29] MEDS: CMCS:Raloxifene 60 mg TAB (NF) PO SCH (08:40)
[2021-07-30] MEDS: Enoxaparin 40 MG/0.4 ML SYR SUBCUT SCH (06:43)
[2021-07-30] MEDS: Erythromycin OPTH OINT APPLIC OINT BOTH EYES SCH ×5 (06:43→20:19)
[2021-07-30] MEDS: Polyethylene Glycol 3350 17 GM PACKET PO SCH ×2 (08:42→20:19)
[2021-07-30] MEDS: CMCS:Raloxifene 60 mg TAB (NF) PO SCH (08:42)
[2021-07-30] MEDS ORDERED: Senna TAB 8.6 mg TAB PO PRN (13:34)
[2021-07-30] MEDS ORDERED: Magnesium Hydroxide LIQ 30 ML UDC PO PRN (13:35)
[2021-07-30 14:13] LABS: Rapid COVID-19 Molecular Undetected (Undetected)
[2021-07-31] MEDS: Erythromycin OPTH OINT APPLIC OINT BOTH EYES SCH (05:13)
[2021-07-31] MEDS: Enoxaparin 40 MG/0.4 ML SYR SUBCUT SCH (05:13)
[2021-07-31] MEDS: CMCS:Raloxifene 60 mg TAB (NF) PO SCH (09:43)
[2021-07-31] MEDS: Polyethylene Glycol 3350 17 GM PACKET PO SCH (09:43)
[2021-07-31 10:35] VITALS: BP 102/74
== END 2021-07-31 13:35 | DRG 392 ==
LOC: ED 21:33 → SUATTDRO 07-20 05:55 → EDHOLD 07-20 05:55 → MED 07-20 08:07 → MEDTELE 07-26 11:45
PROVIDERS: ADMIT Internal Medicine; ATTEND Hospitalist